=== PATIENT | female | born 1990 | race Caucasian/White ===

== ENCOUNTER 2022-02-06 03:59 | Observation (INO) | payer OTHER, SELFPAY ==
[2022-02-06 08:55] VITALS: BMI 35.6
--- NOTE | 2022-02-09 07:42 | P.PNOB_ITS ---
OB - Triage/Final Diagnosis Visit Information Date of evaluation: 02/07/22 Reason for evaluation: threatened labor Comments/Additional reasons for admission: I have assessed the risk for this patient, Chelsey Alston, and determined that she would benefit from obs ervation care.
== END 2022-02-06 09:23 | disposition home or self-care (01) ==
PROVIDERS: Admitting Provider Obstetrics & Gynecology; Visit Provider Obstetrics & Gynecology
DX: O26.899 Other specified pregnancy related conditions, unspecified trimester (principal); R10.2 Pelvic and perineal pain; Z3A.00 Weeks of gestation of pregnancy not specified
CPT/HCPCS: G0378; G0379

== ENCOUNTER 2022-02-07 21:45 | Inpatient (IN) | payer OTHER, SELFPAY ==
--- NOTE | 2022-02-07 21:45 | LDADM ---
This patient, Chelsey Alston, was admitted to Labor/Delivery/Recovery 105 on 02/07/22 at 21:45. Plans for labor, pain management and were discussed with patient. Patient/family oriented to hospital policies and general routines including ID bracelet, bed and alarms, visiting hours, pain management, procedures, bathroom and other care routines, personal items, smoking policy, room service/diet and guest tray routines, infant security routines, and visiting hours. Patient/Family are encouraged to report perceived risks to care and to ask questions if they do not understand what they are told or what they should do. See OBIX for further documentation.
--- OUTSIDE RECORDS SUMMARY | 2022-02-07 23:09 | XMS_ITS ---
:1990 Author Care Team Providers Name Role Phone Ruma Infante Primary Care Provider Unavailable Allergies Code Code System Name Reaction Severity Status Onset NKDA ? Medications Name Status Start Date Stop Date ? ? amoxicillin 500 mg capsule Completed ? 11/29 Daily Active ? Not available Dulcolax Stool Softener (docusate) 100 Active ? Not available mg capsule Milk of Magnesia Active ? Not available Active ? Not available Problems Name Status Onset Date Source ? Atypical Squamous Cells of Undetermined Unknown 07/13/20 21 ? Significance on Cervical Papanicolaou Smear Active 08/10/2021 ? Procedures Date Name Performed by ? 10/07/2008 Operation on Oral Cavity Information not available 10/07/2005 Extraction of [place] Tooth Information n ot available 08/10/2021 US, Obstetric, 1St Trimester [place] [address] [place] [address] ([address]) 10/05/2021 US, Obstetric, 2Nd or 3Rd Trimester [facility] [address] [place] [address] (Work [address]) 10/05/2021 US, Obstetric, Transvaginal [place] [address]
--- OUTSIDE RECORDS SUMMARY | 2022-02-07 23:09 | XMS_ITS | Encounter Summary ---
:1990 Author Reason for Visit OB visit OB [id number] EDC 02/17/2022 LMP 05/13/2021 Assessment and Plan Assessment Note Patient is __32_weeks . Dis cussed plan. 1. Routine care Discussion Note: None recorded.Patient educational handouts: No information available. Plan of Care Reminders Provider Appointments Ob Routine 02/14/2022 Roberta Infante, 9:00AM CNM ? Return to on or around [facility] 07/16/2022 [facility] None ? ? recorded. Referral None ? ? recorded. Procedures None ? ? recorded. Surgeries None ? ? recorded. Imaging None ? ? recorded. Medications Name Start Date ? ? Daily ? Dulcolax Stool Softener (docusate) 100 mg capsule ? Milk of Magnesia ? ? Medications Administered None recorded. Vitals Height Weight BMI Blood Pressure 5 ft 8 in 224 lbs 34.1 kg/m2 120/74 mm[Hg] Results Lab Results None recorded. Allergies Code Code System Name Reaction Severity Onset NKDA ? ? ? Problems
--- OUTSIDE RECORDS SUMMARY | 2022-02-07 23:09 | XMS_ITS | Encounter Summary ---
:1990 Author Reason for Visit OB visit OB [id number] EDC 02/17/2022 LMP 05/13/2021 Assessment and Plan Assessment Note Patient is _38__weeks . Dis cussed plan. 1. Routine care Discussion Note: None recorded.Patient educational handouts: No information available. Plan of Care Reminders Provider Appointments Ob Routine 02/14/2022 Roberta Infante, 9:00AM CNM ? Return to on or around [facility] 07/16/2022 [facility] None ? [...] BMI Blood Pressure 5 ft 8 in 234 lbs 35.6 kg/m2 124/74 mm[Hg] Results Lab Results None recorded. Allergies Code Code System Name Reaction Severity Onset NKDA ? ? ? Problems
--- OUTSIDE RECORDS SUMMARY | 2022-02-07 23:09 | XMS_ITS | Encounter Summary ---
:1990 Author Reason for Visit None recorded. Assessment and Plan 1. condition affecting obs tetrical care of mother ? US, obstetric, follow-up Discussion Note: None recorded.Patient educational handouts: No information available. Plan of Care Reminders Provider Appointments Ob Routine 02/14/2022 Roberta Infante, 9:00AM CNM ? Return to on or around [facility] 07/16/2022 [facility] None ? ? recorded. Referral None ? ? recorded. Procedures None ? ? recorded. Surgeries None ? ? recorded. Imaging US, 12/27/2021 [place] [facility], Follow-up Medications Name Start Date ? ? Daily ? Dulcolax Stool Softener (docusate) 100 mg capsule ? Milk of Magnesia ? ? Medications Administered None recorded. Vitals None recorded. Results Lab Results None recorded. Allergies Code Code System Name Reaction Severity Onset NKDA ? ? ? Problems Name Status Onset Date Source ? Active 08/10/2021 ?
--- OUTSIDE RECORDS SUMMARY | 2022-02-07 23:09 | XMS_ITS | Encounter Summary ---
:1990 Author Reason for Visit None recorded. Assessment and Plan 1. condition affecting obs tetrical care of mother ? US, obstetric, follow-up Discussion Note: None recorded.Patient educational handouts: No information available. Plan of Care Reminders Provider Appointments Ob Routine 02/14/2022 Roberta Infante, 9:00AM CNM ? Return to on or around [facility] Office 07/16/2022 [facility] None ? ? recorded. Referral None ? ? recorded. Procedures None ? ? recorded. Surgeries None ? ? recorded. Imaging US, 01/25/2022 [place] [facility], Follow-up Medications Name Start Date ? [...]
--- OUTSIDE RECORDS SUMMARY | 2022-02-07 23:09 | XMS_ITS | Encounter Summary ---
:1990 Author Reason for Visit OB visit OB [id number] EDC 02/17/2022 LMP 05/13/2021 Assessment and Plan Assessment Note Patient is _28_weeks . Disc ussed plan. 1. Routine care Discussion Note: None [...] BMI Blood Pressure 5 ft 8 in 221 lbs 33.6 kg/m2 123/75 mm[Hg] Results Lab Results None recorded. Allergies Code Code System Name Reaction Severity Onset NKDA ? ? ? Problems
--- OUTSIDE RECORDS SUMMARY | 2022-02-07 23:09 | XMS_ITS | Encounter Summary ---
:1990 Author Reason for Visit OB visit Assessment and Plan Assessment Note Patient is ___weeks . Discu ssed plan. 1. Routine care Discussion Note: None recorded.Patient educational handouts: No information available. Plan of Care Reminders Provider Appointments Ob Routine 02/14/2022 Roberta Infante, 9:00AM CNM ? Return to on or around [facility] Office 07/16/2022 [facility] None ? [...] ft 8 in 234 lbs 35.6 kg/m2 131/80 mm[Hg] Results Lab Results None recorded. Allergies Code Code System Name Reaction Severity Onset NKDA ? ? ? Problems Name Status Onset Date Source ?
--- OUTSIDE RECORDS SUMMARY | 2022-02-07 23:09 | XMS_ITS | Encounter Summary ---
:1990 Author Reason for Visit OB visit OB [id number] EDC 02/17/2022 LMP 05/13/2021 Assessment and Plan Assessment Note Patient is __37_weeks . Dis cussed plan. 1. Routine care [...] ? Medications Administered None recorded. Vitals Height BMI 5 ft 8 in 35.7 kg/m2 Results Lab Results None recorded. Allergies Code Code System Name Reaction Severity Onset NKDA ? ? ? Problems Name Status
--- OUTSIDE RECORDS SUMMARY | 2022-02-07 23:09 | XMS_ITS | Encounter Summary ---
:1990 Author Reason for Visit OB visit OB [id number] EDC 02/17/2022 LMP 05/13/2021 Assessment and Plan Assessment Note Patient is _34__weeks . Dis cussed plan. 1. Routine care [...] BMI Blood Pressure 5 ft 8 in 231 lbs 35.1 kg/m2 116/74 mm[Hg] Results Lab Results None recorded. Allergies Code Code System Name Reaction Severity Onset NKDA ? ? ? Problems
--- OUTSIDE RECORDS SUMMARY | 2022-02-07 23:10 | XMS_ITS | Encounter Summary ---
:1990 Author Reason for Visit None recorded. Assessment and Plan 1. condition affecting obs tetrical care of mother ? US, obstetric, follow-up Discussion Note: None recorded.Patient educational handouts: No information available. Plan of Care Reminders Provider Appointments Ob Routine 02/14/2022 Roberta Infante, 9:00AM CNM ? Return to on or around [facility] Office 07/16/2022 [facility] None ? ? recorded. Referral None ? ? recorded. Procedures None ? ? recorded. Surgeries None ? ? recorded. Imaging US, 11/29/2021 [place] [facility], Follow-up Medications Name Start Date ? [...]
[2022-02-07 23:15] VITALS: BP 116/96; PULSE 81
[2022-02-07 23:30] VITALS: BP 126/83; PULSE 84
--- NOTE | 2022-02-07 23:41 | WPDOBADMIT ---
Obstetrics - Admit Note Admission Note: record reviewed. No pertinent additions to the history and/or any subsequent changes in the physical findings that are not consistent with the expected course of the were found. Patient arrived in labor. /2. Anticipate vaginal delivery. Additions to the history and/or subsequent changes in the physical findings follow. None.
[2022-02-07 23:45] VITALS: BP 164/90; PULSE 87
[2022-02-07 23:46] LABS: Basophils Percent Auto 0.2 % (0.2-1.2); Eosinophils Absolute Auto 0.1 K/mm3 (0-0.3); Eosinophils Percent Auto 0.9 % (0-4.4); Hematocrit 34.5 % (37.0-47.0); Hemoglobin 10.9 g/dL (12.0-15.0); Immature Granulocyte Percent A 0.7 % (0-0.5); Lymphocytes Absolute Auto 2.67 K/mm3 (0.9-3.2); Lymphocytes Percent Auto 19.8 % (18.3-44.2); Mean Corpuscular HGB Conc 31.6 g/dl (32-36); Mean Corpuscular Hemoglobin 27.3 pg (26-34); Mean Corpuscular Volume 86.5 fl (80-100); Mean Platelet Volume 9.2 fl (7.4-10.4); Monocytes Absolute Auto 1.1 K/mm3 (0.1-0.6); Monocytes Percent Auto 7.9 % (2.6-8.5); Neutrophils Absolute Auto 9.5 K/mm3 (1.3-6.7); Neutrophils Percent Auto 70.5 % (45.5-73.1); Platelet Count Result 267 k/mm3 (150-375); Red Blood Count 3.99 M/mm3 (4.2-5.4); Red Cell Distribution Width 14.6 % (11.5-14.5); White Blood Count 13.5 K/mm3 (4.5-10.0)
[2022-02-07 23:48] VITALS: BMI 35.4
[2022-02-08] VITALS (16 sets, daily range): BP systolic 110–138; BP diastolic 61–108; PULSE 75–100; RESP 14–18; TEMP 36.6–37.2; O2SAT 98–100
[2022-02-08] MEDS: CALCIUM CARBONATE (TUMS) 500 MG (200 MG ELEMENTAL) (01:46)
[2022-02-08] MEDS: ONDANSETRON INJ 4 MG/2 ML VIAL IV PUSH (01:46)
[2022-02-08] MEDS: OXYTOCIN 30 UNITS/NS 500 ML 30 UNITS/500 ML BAG 999 UNITS IV CONT (03:24)
--- NOTE | 2022-02-08 03:32 | PM.OBPRVD ---
OB - Delivery Note Procedure Delivery date: 02/08/22 Procedure: Vaginal delivery Induction method: None Delivery augmentation: Rupture of Membranes Delivery monitor: External FHT and External Uterine Route of delivery: Laceration Description: Perineal - 1st Degree Delivery repair: other (Patient declined) Specimen: No Quantitative Blood Loss (ml): 75 Anesthesia type: None Disposition: Floor [place] Baby Date of : 02/08/22 Time of : 03:16 Weeks of gestation at delivery: 38 Infant gender: Female Weight (pounds): 8 Weight (ounces): 1 presentation: vertex position: Left Occiput Anterior Placenta delivery description: Spontaneous Cord Vessel Description: 3 Vessels, Nuchal Cord (x1), Loose, Reduced and Delayed Cord Clamping score one minute: 8 score five minutes: 9 Narrative: Mom and baby skin to skin and in stable condition.
[2022-02-08] MEDS: MULTIVIT/MIN/PREN/FOL AC/IRON TABLET 1 TAB PO (09:06)
[2022-02-08] MEDS: ACETAMINOPHEN 325 MG TABLET 650 MG PO ×2 (09:06→20:21)
--- NOTE | 2022-02-08 13:49 | PC.NURSE ---
[phone] Introductions were made, then consulted with patient to assess needs related to . Mother led the conversation with her experience feeding her so far. Mother works well with her . Encouraged understanding of the benefits of skin to skin (unwrapping and placing vertically on her chest), responsive feeding and how to watch for early feeding signs, frequency of feeding on demand about every 8-12 times in 24 hours (every 2-3 hours), milk production, duration of feeding, signs of adequate intake/output and how to record on the feeding sheet. Reviewed positioning and ear, shoulder, hip alignment, supporting the breast, asymmetrical latch (off-center), and leading with the chin with a big open side gape. Infant latched optimally to the left breast in cross cradle position. Education given to mother of how to visualize suck/swallow ratios and drinking at the breast. was able to maintain latch without discomfort to mother. Nipple care reviewed with optimal latch and good positioning. Reviewed good handwashing when or touching the breast/nipples to prevent infection. Resources used to facilitate learning were used with the mom and baby guide. Mother voiced understanding of responsive feedings, stimulating with skin to skin, hand expressed colostrum, touch, talking to infant to encourage if it has been 2 -3 hours since the start of the last , to call if does not latch or there is discomfort with . Reported to the primary RN.
[2022-02-08 14:54] LABS: Rapid Plasma Reagin Non-Reactive (NonReactive)
[2022-02-08] MEDS: IBUPROFEN 600 MG TABLET PO (15:43)
[2022-02-09] MEDS: IBUPROFEN 600 MG TABLET PO ×2 (03:37→09:29)
[2022-02-09 04:18] LABS: Hemoglobin 10.6 g/dL (12.0-15.0)
--- NOTE | 2022-02-09 07:34 | P.PNOB_ITS ---
OB - PN: Subj Subjective Date/time seen: 02/09/22 07:34 Patient comments: no complaints and pain well controlled baby status: doing well [place] feeding status: exclusively breast feeding OB - PN: Obj Data Labs CBC & Chem 7: 02/09/22 03:34 Labs: Laboratory Results - last 24 hr 02/07/22 02/09/22 23:38 03:34 Hgb 10.6 L Hct 34.0 L RPR Non-reactive OB - PN A/P Plan day: 1 Plan: routine care and discharge home Time Spent With Patient Time: Total time spent is greater than 50% in coordination of care (as documented) at patient's floor/unit and/or counseling patient: Review of Systems Review of Systems: All systems reviewed & are unremarkable except as noted in HPI and below Exam Const: General: cooperative, healthy appearing and comfortable
--- NOTE | 2022-02-09 07:36 | P.DS_ITS ---
DS: Admitting Diagnosis Discharge Date 02/09/2022 Admitting Diagnosis Labor OB - DS: Summary OB Procedures : None OB Procedures Intrapartum: Spontaneous Vag Delivery OB Procedures: : None Time Spent with Patient Time attestation: Total time spent providing and/or coordinating discharge services: DS: Data Data Completed and Pending Labs on day of discharge: Labs from last 24 hours 02/09/22 02/07/22 03:34 23:38 Hgb 10.6 L Hct 34.0 L RPR Non-reactive Discharge Plan Discharge Attending physician on discharge: Krysten Quach Discharging Clinician: Ruma Infante Patient Disposition: Home, Self-Care Activity: pelvic rest Diet: regular Patient Instructions: Antibiotic Form Stand Alone Forms: General Discharge Information Follow-up/Referrals: Ruma Infante CNM [Certified Nurse Database Manager] - (4 weeks) Discharge Medications: Continued docusate sodium [Colace] 100 mg Capsule 100 mg PO DAILY RF: 0 prenat.vits,nicola,[id number] Tablet 1 tablet PO DAILY RF: 0 polyethylene glycol 3350 [Miralax] 17 gram/dose Powder 17 g PO DAILY PRN (Reason: Constipation) RF: 0 Date of admission: 02/07/22 21:45 Primary Care Provider: PHYSICIAN,COMPANY DOCTOR Admitting Provider: Dl Germain Attending physician on admission: Dl Germain Condition: Stable
[2022-02-09 08:40] VITALS: BP 122/74; PULSE 85; RESP 18; TEMP 36.7; O2SAT 99
[2022-02-09 09:00] VITALS: PULSE 85; RESP 18; O2SAT 99
[2022-02-09] MEDS: DOCUSATE SODIUM 100 MG CAPSULE PO (09:28)
[2022-02-09] MEDS: WITCH HAZEL 40 PADS 1 PAD TOPICAL (09:29)
[2022-02-09] MEDS: MULTIVIT/MIN/PREN/FOL AC/IRON TABLET 1 TAB PO (09:29)
--- NOTE | 2022-02-09 10:47 | PC.NURSE ---
Patient viewed the discharge video Mother & Baby Care, The First Two Weeks . Patient was given the opportunity and encouraged to ask questions. Patient verbalized understanding of information shared and has been given the mother/baby guide for home reference.
[2022-02-09 11:40] VITALS: BP 121/77; PULSE 78; RESP 18; TEMP 36.7; O2SAT 97
[2022-02-10 11:48] VITALS: BP 118/70; PULSE 80; RESP 16; TEMP 36.9; O2SAT 100
== END 2022-02-09 12:30 | disposition home or self-care (01) | DRG 807 ==
LOC: ANHLDR 23:37 → ANHOB2 02-08 05:38
PROVIDERS: Advanced Practice Midwife; Admitting Provider Obstetrics & Gynecology; Visit Provider Obstetrics & Gynecology
DX: O69.81X0 Labor and delivery complicated by cord around neck, without compression, not applicable or unspecified (principal); Z37.0 Single live birth; Z3A.38 38 weeks gestation of pregnancy; O70.0 First degree perineal laceration during delivery
CPT/HCPCS: 36415; 85014; 85018; 85025; 86592; 86850; 86900; 86901; A9270; J2405; J2590

== ENCOUNTER 2023-06-22 19:15 | Emergency (ER) | payer OTHER, SELFPAY ==
--- NOTE | 2023-06-22 19:24 | ED.URI ---
HPI - URI/Sore Throat General Chief Complaint: Upper Respiratory Infection Stated Complaint: fever,headaches Time Seen by Provider: 06/22/23 19:24 Source: patient Mode of arrival: ambulatory Limitations: no limitations History of Present Illness HPI Narrative: Chelsey is a 33-year-old female patient presenting to the clinic today with complaints of fever and headaches times 3 days. She reports she had COVID approximately 2 weeks ago. Was exposed to strep 1 week ago. Reports sore throat started today. MD elicited complaint: sore throat and nasal congestion Related Data Home Medications Medication Instructions Recorded Confirmed No Home Medications 06/22/23 06/22/23 Allergies Allergy/AdvReac Type Severity Reaction Status Date / Time No Known Allergies Allergy Verified 06/22/23 19:26 Review of Systems Review of Systems: Pertinent positives per HPI. Patient denies any rash, visual changes, dizziness, shortness of breath, chest pain, palpitations, nausea, vomiting, diarrhea, constipation, abdominal pain, or any urinary issues. [facility] Family History Family History (Updated 01/24/22 @ 13:40 by Elizabeth Pagan RN) Father High cholesterol Grandparent Hypothyroidism Breast cancer in female Mother Hypothyroidism Social History Social History Smoking status: Never smoker Second hand tobacco smoke exposure: No Substance use: never Spiritual care concerns: No Comments At the time of my signature, I reviewed and agree with the nursing past medical, surgical, social, and family history. There is no relevant family history pertinent to the patient complaint. Exam Narrative: General: Well-developed, well nourished, in no apparent distress Head: Normocephalic, atraumatic Eyes: Pupils equally round and reactive to light bilaterally, EOM intact, sclera and conjunctive clear, no discharge, lids normal Ears: TMs intact and clear, ear canals clear, no drainage, grossly hearing normal. Nose: Nares patent, clear discharge, no inflammation, no sinus tenderness. Mouth: Oral pharynx red with exudate to the left tonsil without lesions or masses, good dentition, MMM. Neck: Supple, trachea midline, mild enlargement of anterior cervical nodes, no thyroid masses or goiter palpable. Cardio: Regular rate and rhythm, s1 and s2 normal, no murmur appreciated. Resp: Clear to auscultation bilaterally, no rhonchi, rales, wheezing or rubs Course Course Emergency Course: Portions of this record may have been created with voice recognition software. Level of Care: Express Care Visit Vital Signs Vital signs: Vital signs reviewed MDM - URI/Sore Throat MDM Narrative Medical decision making narrative: At the time of visit patient is resting on the exam table. Strep screen was obtained was negative in the clinic today. I suspect patient has URI/viral pharyngitis/viral syndrome. We will send strep for culture if this comes back positive we will contact the patient placed on antibiotics at that time. Supportive measures were discussed with the patient she voiced understanding of the discharge instructions and agrees to treatment plan. Differential Diagnosis Differential diagnosis: Likely upper respiratory infection, otitis media, sinusitis, viral infection, bronchitis, influenza, pharyngitis and other (COVID) Discharge Plan Discharge Clinical Impression: Viral infection Upper respiratory infection Qualifiers: URI type: unspecified URI Qualified Code(s): J06.9 - Acute upper respiratory infection, unspecified Pharyngitis Qualifiers: Pharyngitis/tonsillitis etiology: unspecified etiology Qualified Code(s): J02.9 - Acute pharyngitis, unspecified Patient Disposition: Home, Self-Care Condition: Stable Instructions: Antibiotic Form, Pharyngitis (ED), Upper Respiratory Infection (ED), Viral Syndrome (ED) Additional Instructions: Strep screen was negative in the clinic today. We will send for culture i
[2023-06-22 19:31] VITALS: BP 141/83; PULSE 88; RESP 18; TEMP 36.6; O2SAT 98
== END 2023-06-22 20:00 | disposition home or self-care (01) ==
PROVIDERS: Emergency Provider Nurse Practitioner Family
DX: B34.9 Viral infection, unspecified (principal); J06.9 Acute upper respiratory infection, unspecified; J02.9 Acute pharyngitis, unspecified; Z86.16 Personal history of COVID-19
CPT/HCPCS: 87081; 87880; 99213; G0463

== ENCOUNTER 2024-03-15 02:03 | Observation (INO) | payer OTHER, SELFPAY ==
[2024-03-15 02:32] VITALS: BP 137/80; PULSE 77
[2024-03-15 03:00] VITALS: BP 133/73; PULSE 80
[2024-03-15 03:18] LABS: Appearance Urine Cloudy (Clear); Bacteria Urine 1+ /hpf; Bilirubin Urine Negative (Negative); Blood Urine Negative (Negative); Color Urine Yellow (Yellow); Glucose Urine UA Negative (Negative); Ketones Urine Negative (Negative); Leukocyte Esterase Ur 1+ LEU/UL (Negative); Nitrate Urine Negative (Negative); Non Pathogenic Casts 0-2; Protein Urine 1+ mg/dL (Negative); RBC Urine 0-2 /hpf (0-2); Specific Grav Ur 1.022 (1.001-1.035); Squamous Epithelial Cell Urine Few /hpf (Few); pH Urine 6.5 (5.0-9.0)
[2024-03-15 03:20] LABS: Add Urine Microscopic? YES
[2024-03-15 03:30] VITALS: BP 137/80; PULSE 78
[2024-03-15] MEDS: LACTATED RINGERS 1,000 ML 999 ML IV CONT (04:16)
[2024-03-15] MEDS: ONDANSETRON INJ 4 MG/2 ML VIAL IV PUSH (04:17)
[2024-03-15 04:28] LABS: Basophils Percent Auto 0.2 % (0.2-1.2); Eosinophils Percent Auto 0.1 % (0-4.4); Hematocrit 33.2 % (37.0-47.0); Hemoglobin 10.6 g/dL (12.0-15.0); Immature Granulocyte Percent A 0.7 % (0-0.5); Lymphocytes Absolute Auto 1.82 K/mm3 (0.9-3.2); Mean Corpuscular HGB Conc 31.9 g/dl (32-36); Mean Corpuscular Hemoglobin 26.9 pg (26-34); Mean Corpuscular Volume 84.3 fl (80-100); Mean Platelet Volume 9.3 fl (7.4-10.4); Monocytes Absolute Auto 0.6 K/mm3 (0.1-0.6); Monocytes Percent Auto 4.1 % (2.6-8.5); Neutrophils Absolute Auto 11.4 K/mm3 (1.3-6.7); Neutrophils Percent Auto 81.9 % (45.5-73.1); Platelet Count Result 278 k/mm3 (150-375); Red Blood Count 3.94 M/mm3 (4.2-5.4); Red Cell Distribution Width 14.4 % (11.5-14.5)
[2024-03-15 05:08] LABS: Alanine Aminotransferase 12 U/L (6-35); Albumin Level 3.6 g/dL (3.5-5.1); Alkaline Phosphatase 86 U/L (38-126); Anion Gap 5 mmol/L (4-12); Aspartate Amino Transferase 27 U/L (14-36); Bilirubin,Total 1.3 mg/dL (0.2-1.3); Blood Urea Nitrogen 6 mg/dL (7-17); Calcium 8.4 mg/dL (8.4-10.2); Carbon Dioxide 17 mmol/L (22-30); Chloride 110 mmol/L (98-107); Estimated Glomerular Filt Rate > 60; Glucose 107 mg/dL (65-110); Potassium 4.4 mmol/L (3.4-5.0); Sodium 132 mmol/L (137-145)
[2024-03-15] MEDS: FAMOTIDINE 20 MG/2 ML VIAL IV PUSH (05:11)
[2024-03-15] MEDS: METOCLOPRAMIDE HCL INJ 10 MG/2 ML VIAL IV PUSH (05:50)
[2024-03-15 05:59] VITALS: BP 136/75; PULSE 78
[2024-03-15 07:00] VITALS: TEMP 37.1
--- NOTE | 2024-03-15 08:35 | PM.OBTRLD ---
OB - Triage/Final Diagnosis Visit Information Comments/Additional reasons for admission: I have assessed the risk for this patient, Chelsey Alston, and determined that she would benefit from observation care. Evaluation Laboratory results: Laboratory Tests 03/15/24 03/15/24 03/15/24 03:03 04:14 04:44 WBC 14.0 H RBC 3.94 L Hgb 10.6 L Hct 33.2 L MCV 84.3 MCH 26.9 MCHC 31.9 L RDW 14.4 Plt Count 278 MPV 9.3 Immature Gran % (Auto) 0.7 H Neut % (Auto) 81.9 H Lymph % (Auto) 13.0 L [place] % (Auto) 4.1 Eos % (Auto) 0.1 Baso % (Auto) 0.2 Lymph # (Auto) 1.82 [place] # (Auto) 0.6 Eos # (Auto) 0.0 Baso # (Auto) 0.0 Abs Immat Gran (auto) 0.10 H Absolute Neuts (auto) 11.4 H Absolute Nucleated RBC 0.000 Nucleated RBC % 0.0 Sodium 132 L Potassium 4.4 Chloride 110 H Carbon Dioxide 17 L Anion Gap 5 BUN 6 L Creatinine 0.50 L Estim Creat Clear Calc Not Reportable Estimated GFR > 60 Glucose 107 Calcium 8.4 Total Bilirubin 1.3 AST 27 ALT 12 Alkaline Phosphatase 86 Total Protein 7.0 Albumin 3.6 Urine Color Yellow Urine Appearance Cloudy H Urine pH 6.5 Ur Specific [place] 1.022 Urine Protein 1+ H Urine Glucose (UA) Negative Urine Ketones Negative Ur Blood (Man) Negative Urine Nitrate Negative Urine Bilirubin Negative Urine Urobilinogen 1.0 Leukocyte Esterase Rfl 1+ H Urine RBC 0-2 Urine WBC 11-20 H Ur Squamous Epith Cells Few Urine Bacteria 1+ H Urine Casts 0-2 Vital signs: Vital Signs - 24 hr 03/15/24 02:32 03/15/24 03:00 03/15/24 03:30 Temperature Pulse Rate 77 80 78 Blood Pressure 137/80 133/73 137/80 Oxygen Delivery 03/15/24 05:59 03/15/24 07:00 03/15/24 07:30 Temperature 98.8 F Pulse Rate 78 Blood Pressure 136/75 Oxygen Delivery Room Air Final Diagnosis (1) Nausea and vomiting: Code(s): R11.2 - Nausea with vomiting, unspecified Status: Acute
== END 2024-03-15 08:55 | disposition home or self-care (01) ==
PROVIDERS: Admitting Provider Obstetrics & Gynecology; Visit Provider Obstetrics & Gynecology
DX: O21.2 Late vomiting of pregnancy (principal); Z3A.34 34 weeks gestation of pregnancy
CPT/HCPCS: 36415; 80053; 81001; 85025; 87086; 96374; 96375; G0378; G0379; J2405; J2765; J7120

== ENCOUNTER 2024-04-16 03:12 | Observation (INO) | payer OTHER, SELFPAY ==
[2024-04-16] VITALS (45 sets, daily range): BP systolic 107–133; BP diastolic 66–84; PULSE 70–100; TEMP 36.9; O2SAT 98–100; BMI 37.3
--- NOTE | 2024-04-16 08:36 | OBADM ---
This patient, Chelsey Alston, admitted to the OB room Labor/Delivery/Recovery 103 for observation. Patient/family oriented to hospital policies and general routines including ID bracelet, bed and alarms, visiting hours, pain management, procedures, bathroom and other care routines, personal items, smoking policy, room service/diet, and visiting hours. Patient/Family are encouraged to report perceived risks to care and to ask questions if they do not understand what they are told or what they should do.
--- NOTE | 2024-04-17 07:44 | PM.OBTRLD ---
OB - Triage/Final Diagnosis Visit Information Date of evaluation: 04/15/24 Reason for evaluation: threatened labor Comments/Additional reasons for admission: I have assessed the risk for this patient, Chelsey Alston, and determined that she would benefit from observation care. Evaluation Vital signs: Vital Signs - 24 hr 04/16/24 07:48 04/16/24 07:53 04/16/24 08:33 Pulse Oximetry 98 100 Oxygen Delivery Room Air
== END 2024-04-16 08:49 | disposition home or self-care (01) ==
PROVIDERS: Admitting Provider Obstetrics & Gynecology; Visit Provider Obstetrics & Gynecology
DX: O47.9 False labor, unspecified (principal)
CPT/HCPCS: G0378; G0379

== ENCOUNTER 2024-04-21 20:12 | Inpatient (IN) | payer OTHER, SELFPAY ==
[2024-04-21 21:46] VITALS: BP 141/93; PULSE 82
[2024-04-21 22:30] LABS: Basophils Percent Auto 0.3 % (0.2-1.2); Eosinophils Absolute Auto 0.1 K/mm3 (0-0.3); Eosinophils Percent Auto 0.5 % (0-4.4); Hematocrit 34.6 % (37.0-47.0); Hemoglobin 10.5 g/dL (12.0-15.0); Immature Granulocyte Absolute 0.07 K/mm3 (0.00-0.031); Immature Granulocyte Percent A 0.6 % (0-0.5); Lymphocytes Absolute Auto 2.65 K/mm3 (0.9-3.2); Mean Corpuscular HGB Conc 30.3 g/dl (32-36); Mean Corpuscular Hemoglobin 25.1 pg (26-34); Mean Corpuscular Volume 82.6 fl (80-100); Mean Platelet Volume 9.4 fl (7.4-10.4); Monocytes Percent Auto 8.2 % (2.6-8.5); Neutrophils Absolute Auto 7.8 K/mm3 (1.3-6.7); Neutrophils Percent Auto 67.4 % (45.5-73.1); Platelet Count Result 307 k/mm3 (150-375); Red Blood Count 4.19 M/mm3 (4.2-5.4); Red Cell Distribution Width 15.6 % (11.5-14.5); White Blood Count 11.5 K/mm3 (4.5-10.0)
--- NOTE | 2024-04-21 22:33 | LDADM ---
This patient, Chelsey Alston, was admitted to Labor/Delivery/Recovery 109 on 04/21/24 at 20:12. Plans for labor, pain management and were discussed with patient. Patient/family oriented to hospital policies and general routines including ID bracelet, bed and alarms, visiting hours, pain management, procedures, bathroom and other care routines, personal items, smoking policy, room service/diet and guest tray routines, infant security routines, and visiting hours. Patient/Family are encouraged to report perceived risks to care and to ask questions if they do not understand what they are told or what they should do. See OBIX for further documentation.
[2024-04-21 22:54] VITALS: BMI 37.3
[2024-04-21 23:25] LABS: HIV 1/2 Ab P24 Ag Result Negative (Negative)
[2024-04-22] VITALS (16 sets, daily range): BP systolic 112–140; BP diastolic 59–107; PULSE 68–102; RESP 16–18; TEMP 36.4–37.2; O2SAT 73–100
[2024-04-22] MEDS: AMPICILLIN 2 GM/NS 100 ML 2 GM/100 ML BAG IVPB (00:06)
[2024-04-22] MEDS: LACTATED RINGERS 1,000 ML 125 ML IV CONT (00:18)
--- NOTE | 2024-04-22 02:23 | WPDOBADMIT ---
Obstetrics - Admit Note Admission Note: record reviewed. No pertinent additions to the history and/or any subsequent changes in the physical findings that are not consistent with the expected course of the were found. Additions to the history and/or subsequent changes in the physical findings follow. Admit in labor, anticipate vaginal delivery
--- NOTE | 2024-04-22 02:39 | PM.OBPNLAB ---
Pain Control Date/time seen: 04/22/24 02:39 Pelvic Exam Dilation (cm): 8 Effacement (%): 95 station: -2 Amniotic membrane status: Ruptured Comments: AROM, minimal amount of clear odorless fluid
--- NOTE | 2024-04-22 03:17 | PM.OBPRVD ---
OB - Vaginal Delivery Note Procedure Delivery date: 04/22/24 Induction method: None Delivery augmentation: Rupture of Membranes Delivery monitor: External FHT and External Uterine Route of delivery: Episiotomy description: None Laceration Description: Perineal - 1st Degree Delivery repair: other (none) Specimen: No Quantitative Blood Loss (ml): 50 Anesthesia type: None Disposition: Floor Complications: No immediate complications Baby Date of : 04/22/24 Time of : 03:03 Weeks of gestation at delivery: 39 Infant gender: Female presentation: vertex position: Left Occiput Anterior Placenta delivery description: Spontaneous Cord Vessel Description: 3 Vessels, Clamped/Cut and Delayed Cord Clamping score one minute: 8 score five minutes: 9 Narrative: mother and baby in stable condition
[2024-04-22] MEDS: OXYTOCIN 30 UNITS/NS 500 ML 30 UNITS/500 ML BAG 125 UNITS IV CONT (03:34)
[2024-04-22] MEDS: ACETAMINOPHEN 325 MG TABLET 650 MG PO ×2 (03:57→21:49)
[2024-04-22] MEDS: IBUPROFEN 600 MG TABLET PO ×4 (03:58→21:49)
[2024-04-22] MEDS: MULTIVIT/MIN/PREN/FOL AC/IRON TABLET 1 TAB PO (09:36)
[2024-04-22] MEDS: BENZOCAINE 20% AER SPR (*SP) 56 GM CAN 1 SPRAY TOPICAL (10:34)
[2024-04-22 13:14] LABS: Rapid Plasma Reagin Non-Reactive (NonReactive)
--- NOTE | 2024-04-22 16:35 | PC.NURSE ---
Introductions were made, then consulted with patient to assess needs related to . Mother led the conversation with her?plans to feed?her infant and the?experience so far. Encouraged understanding of responsive feeding, feeding on demand (aiming for 8-12 times in 24 hours, about every 2-3 hours), milk production, building/maintaining a milk supply, duration of feeding, signs of adequate intake/output and how to record on the feeding sheet. Reviewed signs of a deep latch, nipple soreness, changing positions to facilitate a deep latch, and holding breast so baby can get a good 'bite'. Mother knows to call if infant does not latch, or if there is discomfort with . Parents voiced understanding of information, demonstrated learning and will call if there is a request for assistance. Reported to the Primary RN.
[2024-04-22] MEDS: DOCUSATE SODIUM 100 MG CAPSULE PO (16:45)
[2024-04-23 01:10] VITALS: BP 114/80; PULSE 81; RESP 16; TEMP 37.2; O2SAT 100
[2024-04-23] MEDS: IBUPROFEN 600 MG TABLET PO ×4 (03:43→23:35)
[2024-04-23] MEDS: ACETAMINOPHEN 325 MG TABLET 650 MG PO ×3 (03:44→23:35)
[2024-04-23 05:02] LABS: Hemoglobin 10.1 g/dL (12.0-15.0)
[2024-04-23 07:15] VITALS: BP 119/78; PULSE 66; RESP 16; TEMP 37.1; O2SAT 99
--- NOTE | 2024-04-23 08:47 | PM.OBPNVD ---
OB - PN: Subj Subjective Date/time seen: 04/23/24 08:47 Patient comments: no complaints, pain well controlled, incisional pain, tolerating diet and flatus present OB - PN: Obj Data Labs 04/23/24 04:28 Labs: Laboratory Results - last 24 hr 04/21/24 04/23/24 21:51 04:28 Hgb 10.1 L Hct 34.0 L RPR Non-reactive OB - PN A/P Plan day: 1 Plan: routine care Comments: No problems, routine care Time Spent With Patient Time: Total time spent is greater than 50% in coordination of care (as documented) at patient's floor/unit and/or counseling patient: Exam Const: General: comfortable, no acute distress and alert Resp: Effort & Inspection: normal respiratory effort Auscultation: no crackles, no rales and no rhonchi Cardio: Rate: regular rate Heart sounds: no click, no murmurs and no rubs GI: Inspection: non-distended GI Palp: No Tenderness to palpation present (GI) Auscultation: normal bowel sounds Other: Incision - CDI Extrem: General: normal to inspection, no pedal edema and no calf tenderness
[2024-04-23] MEDS: MULTIVIT/MIN/PREN/FOL AC/IRON TABLET 1 TAB PO (09:57)
[2024-04-23] MEDS: DOCUSATE SODIUM 100 MG CAPSULE PO ×2 (09:57→17:21)
[2024-04-23 19:38] VITALS: BP 134/80; PULSE 95; RESP 16; TEMP 36.9; O2SAT 100
[2024-04-24] MEDS: IBUPROFEN 600 MG TABLET PO (05:49)
[2024-04-24] MEDS: ACETAMINOPHEN 325 MG TABLET 650 MG PO (05:49)
--- NOTE | 2024-04-24 07:02 | PM.OBPNVD ---
OB - PN: Subj Subjective Date/time seen: 04/24/24 07:02 Interval history: pp day 2 doing well desires d/c home OB - PN: Obj Data Labs 04/23/24 04:28 OB - PN A/P Plan day: 2 Plan: routine care and discharge home Time Spent With Patient Time: Total time spent is greater than 50% in coordination of care (as documented) at patient's floor/unit and/or counseling patient: Review of Systems Review of Systems: All systems reviewed & are unremarkable except as noted in HPI and below Exam Const: General: cooperative and healthy appearing Chest: Chest palpation & inspection: normal inspection of the chest Resp: Effort & Inspection: normal respiratory effort Cardio: Rate: regular rate Rhythm: regular rhythm GI: Other: soft Skin: General skin exam: normal color Neuro: General: patient oriented x3
--- NOTE | 2024-04-24 07:04 | PM.OBDSVD ---
DS: Admitting Diagnosis Discharge Date 04/24/24 Admitting Diagnosis labor DS: Discharge Diagnosis Discharge Diagnosis (1) Vaginal delivery: Code(s): O80 - Encounter for full-term uncomplicated delivery Status: Acute OB - DS: Summary OB Procedures : None OB Procedures Intrapartum: Spontaneous Vag Delivery OB Procedures: : None Peripartum Data Laceration Description: Perineal - 1st Degree Episiotomy description: None Time Spent with Patient Time attestation: Total time spent providing and/or coordinating discharge services: Discharge Plan Discharge Attending physician on discharge: Gurdeep Germain Consulting providers: Ruma Infante Discharging Clinician: Ruma Infante Patient Disposition: Home, Self-Care Activity: pelvic rest Diet: regular Patient Instructions: Antibiotic Form Stand Alone Forms: General Discharge Information Follow-up/Referrals: Ruma Infante, CNM [Certified Nurse Centrifugal Screen Tender] - 4 Weeks Discharge Medications: New ibuprofen 600 mg Tablet 600 mg PO Q6H PRN (Reason: Cramping) Qty: 30 0RF Continued [id number]-Ir-[id number] 1 mg Tablet 1 tablet PO DAILY famotidine [Pepcid] 20 mg Tablet 20 mg PO BID docusate sodium [Colace] 100 mg Capsule 100 mg PO BID Date of admission: 04/21/24 20:12 Primary Care Provider: PHYSICIAN,SCHOLARSHIP COUNSELOR Admitting Provider: Gurdeep Germain Attending physician on admission: Gurdeep Germain Condition: Stable
[2024-04-24 07:15] VITALS: BP 121/78; PULSE 66; RESP 16; TEMP 36.9; O2SAT 97
--- NOTE | 2024-04-24 08:45 | PC.NURSE ---
Consulted with mother concerning needs and she shared her ability to independently latch infant. She said sometimes has a shallow latch at first but them mom is able to get her on deeper as she sucks. Mother's nipples are sore. She was given a pump yesterday and is pumping a good volume (30ml). Advised that she continue to pump and supplement what she gets until baby is stronger and transferring milk better. Mother is feeding appropriately for growth of infant and understands stimulating to eat if needed. has had appropriate feedings in the last 24 hours meets the outcomes for weight, output, blood sugar and jaundice at this time. Reinforced understanding of milk production, transition of milk, signs of adequate intake, transition of stool, community resources, and when to call a provider using the resource of the feeding sheet along with the mom and baby guide. Mother voiced understanding of the information shared, is confident to continue effectively her at home, when to call for assistance, denies any additional assistance or education at this time. Reported to the Primary RN.
[2024-04-24] MEDS: MEASLES,MUMPS,RUBELLA VACCINE 0.5 ML VIAL SUB-Q (08:55)
[2024-04-24] MEDS: MULTIVIT/MIN/PREN/FOL AC/IRON TABLET 1 TAB PO (08:55)
[2024-04-24] MEDS: DOCUSATE SODIUM 100 MG CAPSULE PO (08:55)
--- NOTE | 2024-04-24 09:00 | PC.NURSE ---
Patient was given the opportunity to view the discharge video Mother & Baby Care, The First Two Weeks and to ask questions. Patient declined viewing the video and has been given the mother/baby guide for home reference.
[2024-04-25 10:20] VITALS: BP 128/73; PULSE 75; RESP 18; TEMP 36.5; O2SAT 99
== END 2024-04-24 12:00 | disposition home or self-care (01) | DRG 807 ==
LOC: ANHLDR 21:44 → ANHOB2 04-22 06:48
PROVIDERS: Advanced Practice Midwife; Admitting Provider Obstetrics & Gynecology; Visit Provider Obstetrics & Gynecology
DX: O99.824 Streptococcus B carrier state complicating childbirth (principal); Z37.0 Single live birth; O70.0 First degree perineal laceration during delivery; O62.3 Precipitate labor; Z3A.39 39 weeks gestation of pregnancy
CPT/HCPCS: 36415; 85014; 85018; 85025; 86592; 86703; 86850; 86900; 86901; 90710; A9270; G0432; J0290; J2590; J7120